=== PATIENT | female | born 1985 | race Caucasian/White ===

== ENCOUNTER → 2016-11-15 18:00 | Observation (INO) ==
[2016-11-15 16:45] LABS: Basophils % 0.4 %; Eosinophils % 0.5 %; Hematocrit 34.4 % (35.3-44.9); Hemoglobin 11.7 g/dL (11.5-15.4); Immature Granulocytes % 1.1 % (0-4); Lymphocytes # 2.5 K/mcL (0.6-4.6); Lymphocytes % 29.6 %; Mean Corpuscular Hemoglobin 32.1 pg (28.0-33.3); Mean Corpuscular Volume 94.5 fL (83.0-100.0); Mean Platelet Volume 11.1 fL (9.4-12.4); Monocytes # 0.5 K/mcL (0.0-1.3); Monocytes % 6.2 %; Neutrophils # 5.3 K/mcL (1.6-8.9); Platelet Count 213 K/mcL (140-400); Red Blood Count 3.64 M/mcL (3.82-4.97); Red Cell Distribution Width 13.4 % (11.5-14.5); Segmented Neutrophils % 62.2 %
[2016-11-15 16:51] LABS: Alanine Aminotransferase 18 Units/L (0-55); Aspartate Amino Transferase 19 Units/L (5-34); BUN/Creatinine Ratio 17 (6-26); Blood Urea Nitrogen 12 mg/dL (7-20); Lactate Dehydrogenase 210 Units/L (159-327); Uric Acid 4.9 mg/dL (2.6-6.0); eGFR For African Americans > 60 (> 60); eGFR For Non-African Americans > 60 (> 60)
--- NOTE | 2016-11-15 17:05 | OB/GYN Progress Note ---
Date of Encounter: 11/15/16 Time of Encounter: 17:03 - Assessment and Plan (1) 37 weeks gestation of Current Visit: Yes Status: Acute (2) Gestational hypertension Current Visit: Yes Status: Acute Blood pressure initially mildly elevated but has improved while in triage. Labs WNL. UPCR 0.10. Discharge home. Follow-up Monday in office for NST and BP check. Qualifiers: Trimester: third trimester Qualified Code(s): O13.3 - Gestational [ -induced] hypertension without significant proteinuria, third trimester (3) NST (non-stress test) reactive Current Visit: Yes Status: Acute Subjective - Subjective Interval history: 31 year-old presenting at 37 weeks gestation from office due to BP 150/ 100. Pt reports having some blurry vision around 0400 this am. She denies any headache, vision changes, RUQ pain, LOF, VB, or other complaints at this time. She states she took her BP at home this am when she was having sx and it was 130 's/90's. Antepartum ROS: movement normal, no loss of fluid, no vaginal bleeding, no contractions Objective - Vital Signs Vital Signs: Intake and Output 11/15/16 11/15/16 11/15/16 07:59 15:59 23:59 Other: Weight 111.9 kg Patient Weight 11/15/16 23:59 Weight 111.9 kg - Exam FHR: category 1 FHR comments: NST reactive 140 BPM Abdomen: Present: soft, gravid. Absent: tenderness Uterus: Absent: tenderness Comments: reflexes normal. - Labs Labs: Abnormal lab results RBC 3.64 M/mcL (3.82-4.97) L 11/15/16 16:25 Hct 34.4 % (35.3-44.9) L 11/15/16 16:25
[2016-11-15 17:38] LABS: Amphetamine Screen,Urine Negative ng/mL (Cutoff=1000); Barbiturate Screen,Urine Negative ng/mL (Cutoff=200); Benzodiazepines Screen,Urine Negative ng/mL (Cutoff=200); Cannabinoid Screen,Urine Negative ng/mL (Cutoff = 50); Cocaine Screen,Urine Negative ng/mL (Cutoff= 300); Creatinine,Urine 100 mg/dL; Opiate Screen,Urine Negative ng/mL (Cutoff=300); Phencyclidine Screen,Urine Negative ng/mL (Cutoff=25)
== END | disposition home or self-care (01) ==
LOC: 1NENULAB
PROVIDERS: ADMIT Obstetrics & Gynecology; ATTEND Obstetrics & Gynecology

== ENCOUNTER 2016-11-21 04:00 | Inpatient (IN) ==
[~2016-11-21 04:00] MED LIST: CeFAZolin Pre 2,000 MG/100 ML 2,000 MG/100 ML BAG IVPB ONE; Famotidine 20 MG/2 ML VIAL IVP ONE; Metoclopramide 10 MG/2 ML VIAL IVP ONE; Oxytocin 20 units/ LR 1000 mL 20 UNIT/1,000 ML BAG IVC ONE; Ringers Solution, Lactated 1,000 ML IVC ONE
--- NOTE | 2016-11-21 04:05 | OB/GYN History & Physical ---
Date of Encounter: 11/21/16 Time of Encounter: 04:03 Assessment and Plan (1) 38 weeks gestation of Current visit: Yes Status: Acute (2) Breech presentation Current visit: Yes Status: Acute Qualifiers: Fetus number: single or unspecified fetus Qualified Code(s): O32.1XX0 - Maternal care for breech presentation, not applicable or unspecified (3) Spontaneous onset of labor Current visit: Yes Status: Acute Discussed with patient. Informed consent obtained for primary for breech. Labs ordered and anesthesia notified. History of Present Illness Chief complaint: contractions HPI: Ms. Garland is a 31 year old female G1 at 38 4/7 weeks presents to labor and delivery for contractions that began at 11 pm. She has also had some vaginal spotting, but denies leaking fluid. She deneies any complications with the . Past Med Surg Social Fam HX - Past Medical History Source: patient Medical history: no medical history, other Psychiatric history: no psych history - Past Surgical History Surgical History: no surgical history - Social History Smoking Status: Never smoker Smokeless Tobacco Status: No Alcohol use: none Drug use: none - Family History Father Age: 58 Living Status: Still Living Hx Family Cardiac Disorders: No Hx Family Respiratory Disorders: No Hx Family Cancer: No Hx Family GI Disorders: No Hx Family Genitourinary Disorders: No Hx Family Endocrine Disorder: Yes (diabetic) Hx Family Musculoskeletal Disorders: No Hx Family Neuromuscular Disorders: No Hx Family Neurologic Disorders: No Hx Family HEENT Disorders: No Hx Family Autoimmune Disorders: No Hx Family Reproductive Disorders: No Hx Family Psychosocial Disorders: No Hx Family Medical Disorders: No Obstetrical History - Pregnancies : 1 Medications and Allergies Vitamins 1 tab PO DAILY 11/15/16 [History] Tums 2 tab PO PRN PRN 11/15/16 [History] 3 Allergy/AdvReac Type Severity Reaction Status Date / Time No Known Allergies Allergy Verified 11/15/16 16:45 Review of System OB All systems PM: reviewed and no additional remarkable complaints except as stated Exam - Vital Signs Vital signs: Initial Vital Signs Pulse Resp BP 76 16 142/90 11/21/16 03:36 11/21/16 03:36 11/21/16 03:36 - Constitutional Constitutional: well developed, well nourished, no acute distress, obese - HEENT HEENT: EOMI - Lungs Respiratory exam: CTAB - Cardiovascular Cardiovascular exam: RRR - Abdomen Abdomen: Present: bowel sounds normal, gravid, non tender - Cervix Dilation: 5 Results All other labs normal. US - abdomen: other (bedside performed confirming breech presentation)
[2016-11-21] MEDS ORDERED: Ringers Solution, Lactated 1,000 ML ONE ×2 (04:12→05:19)
--- NOTE | 2016-11-21 04:24 | Anesthesia Evaluation PreOp ---
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: Syncope (H/O vasovagal syncope) Other Medical History: GERD, Other (obesity BMI=45) Anesthesia History: Past Anesthesia (no prior surgery) : Yes (IUP 38+4 weeks, ) Alcohol Use: none Drug use: none Medications and Allergies Vitamins 1 tab PO DAILY 11/15/16 [History] Tums 2 tab PO PRN PRN 11/15/16 [History] 3 Allergy/AdvReac Type Severity Reaction Status Date / Time No Known Allergies Allergy Verified 11/15/16 16:45 - Meds/Allergy Pre-op Review Medications Reviewed: Yes Allergies Reviewed: Yes Beta Blockers on Current Med List: No Anesthesia Results - Labs 11/21/16 04:20 Anesthesia Exam 3 BP 146/85 Pulse 73 Resp 18 Temp 99.3 Height: 5'2''/1.57 m Weight: 246 lbs/111.674 kg NPO (# of Hours): 8 Pain Scale: 0 Pain Scale Used: Numeric (1 - 10) - HEENT Pupil (Motor): EOMI Mallampati: III Teeth: Normal Oral Opening: Greater than 3 - AUTO PARTS CLERK LOC: Oriented [employer]ERK Motor: Normal RUE, Normal LUE, Normal RLE, Normal LLE, Normal Face [employer] Sensory: Normal: RUE, RLE, LLE, Face, Deficit: LUE (left thumb numbness) - Cardiac Rhythm: Regular Murmur: None - Pulmonary Breath Sounds: bilateral Clear Respiratory Effort: Symmetrical Anesthesia Assess/Plan ASA Score: 3 Modified Harriett Scale for Level of Consciousness: Cooperative, oriented, and tranquil Anesthetic Plan: Regional Monitoring Plan: Standard Monitors Recovery Plan: PACU
[2016-11-21 04:31] LABS: Basophils % 0.3 %; Eosinophils # 0.1 K/mcL (0.0-0.6); Eosinophils % 0.7 %; Hematocrit 34.5 % (35.3-44.9); Hemoglobin 11.7 g/dL (11.5-15.4); Immature Granulocytes % 0.7 % (0-4); Lymphocytes # 2.4 K/mcL (0.6-4.6); Lymphocytes % 27.6 %; Mean Corpuscular HGB Conc 33.9 g/dL (31.6-35.5); Mean Corpuscular Hemoglobin 31.3 pg (28.0-33.3); Mean Corpuscular Volume 92.2 fL (83.0-100.0); Mean Platelet Volume 11.1 fL (9.4-12.4); Monocytes # 0.5 K/mcL (0.0-1.3); Monocytes % 5.7 %; Neutrophils # 5.6 K/mcL (1.6-8.9); Platelet Count 211 K/mcL (140-400); Red Blood Count 3.74 M/mcL (3.82-4.97); Red Cell Distribution Width 13.4 % (11.5-14.5)
[2016-11-21 04:43] LABS: Amphetamine Screen,Urine Negative ng/mL (Cutoff=1000); Barbiturate Screen,Urine Negative ng/mL (Cutoff=200); Benzodiazepines Screen,Urine Negative ng/mL (Cutoff=200); Cannabinoid Screen,Urine Negative ng/mL (Cutoff = 50); Cocaine Screen,Urine Negative ng/mL (Cutoff= 300); Opiate Screen,Urine Negative ng/mL (Cutoff=300); Phencyclidine Screen,Urine Negative ng/mL (Cutoff=25)
[2016-11-21] MEDS ORDERED: *HR* Phenylephrine 10 MG/ML VIAL ONE (04:43)
[2016-11-21] MEDS ORDERED: *HR* Oxytocin 10 UNIT/ML VIAL IM ONE (04:47)
[2016-11-21] MEDS ORDERED: *HR* Morphine Sulfate/PF 5 MG/10 ML AMPUL ONE (04:48)
[2016-11-21] MEDS ORDERED: *HR* FentaNYL (PF) 100 MCG/2 ML VIAL ONE (04:48)
[2016-11-21] MEDS ORDERED: EPHEDrine 50 MG/ML VIAL ONE (04:50)
[2016-11-21] MEDS ORDERED: Ibuprofen 400 MG TABLET PO PRN (05:36)
[2016-11-21] MEDS ORDERED: *HR* OxyCODONE/APAP 5/325 TABLET PO PRN (05:36)
[2016-11-21] MEDS ORDERED: Ondansetron 4 MG/2 ML VIAL IVP PRN ×2 (05:36→08:42)
[2016-11-21] MEDS ORDERED: Ondansetron 4 MG/2 ML VIAL IVP ONE (05:36)
[2016-11-21] MEDS ORDERED: *HR* Morphine 2 MG/ML SYRINGE IVP PRN (05:36)
--- NOTE | 2016-11-21 05:45 | Anesthesia Procedures ---
Date of Encounter: 11/21/16 Time of Encounter: 05:11 Procedures: Anesthesia - Epidural/Spinal Patient ID/Chart reviewed: Yes Patient examined: Yes OB Eval: : 1 OB Eval: Hx Para: 0 OB Eval: Contractions: Non-stressed pattern Consent Obtained: Yes Supplemental Oxygen: None/Room Air Site Prep: Aseptic Technique, Sterile prep and drape, Povidone-Iodine 1% Patient position: upright Local Anesthetic: Lidocaine 1% Amount of Local Anesthetic used: 3 Interspace Used: L3-L4 Loss of Resistance (MARVIN): No Blood: No CSF: Yes Paresthesia: Yes Spinal Needle Gauge: 22 (bupivicaine 0.75% 1.6ml fentanyl 12 mcg morphine 0.3mg)
--- NOTE | 2016-11-21 06:09 | OB/GYN Procedure Note ---
Section - Date of procedure: 11/21/16 Preop diagnosis: breech Post-op diagnosis: same Procedure: section, primary low transverse Surgeon: Julita Long Estimated blood loss (cc): 350 Anesthesiologist: Goldy Merchant Stock Buyer: Becki Merchant Anesthesia Type: Spinal section complications: none Disposition: L&D Recovery Room Specimens: Placenta - (s) A Delivery Date: 11/21/16 Infant Delivery Time: 05:27 Presentation: jules breech Route of delivery: breech extraction Gender: Male Viability: Viable Pounds: 7 Ounces: 13 Gram Weight: 3.545 kg at 1 minute: 8 at 5 minutes: 9 Shoulder Dystocia: not encountered Specimens collected: cord blood Placenta: complete extraction Cord: 3 umbilical vessels - Narrative Narrative: Patient was taken to the operative suite and placed under spinal anesthetic. She was then prepped and draped in normal sterile fashion in the dorsal supine position. Timeout was then performed. Antibiotics were given at room time. SCDs are on and active. Pfannenstiel skin incision is then made and carried through to underlying layer of fascia with the Bovie. The fascia was then incised in the midline and incision extended laterally with the Sparks scissors. The fascia was tented up and dissected off the rectus muscles sharply. The rectus muscles were in the midline and the peritoneum was tented up and entered sharply with the Metzenbaum scissors. The peritoneal incision was then extended bluntly. The bladder blade was then inserted and the vesicouterine peritoneum was entered sharply. Bladder flap was created digitally. A low transverse uterine incision was then made. The infant breech was brought to the incision and the infant was delivered using fundal pressure. There was no nuchal cord. Cord was clamped and cut. was handed to waiting nursery staff. Placenta delivered complete and intact with a three-vessel cord. The uterus was cleared of all clots and debris using moist laparotomy sponge. The uterine incision was then closed using 0 Vicryl in a running locked fashion. A second layer of the same suture was used to obtain excellent hemostasis. The abdomen was then cleared of all clots and debris using copious irrigation. A piece of Interceed was placed over the uterine incision and the anterior uterine serosa. The fascial incision was then closed using 0 Vicryl in a running fashion. The skin was closed using 4-0 Vicryl in a subcuticular fashion. Steri-Strips and sterile dressing are then placed. Mother and taken to recovery in stable condition.
--- NOTE | 2016-11-21 08:10 | Anesthesia Evaluation Post Op ---
Date of Encounter: 11/21/16 Time of Encounter: 08:08 - Vital Signs Vital Signs: Vital Signs/O2 Sat, Most Current Pulse Resp BP 76 16 142/90 11/21/16 03:36 11/21/16 03:36 11/21/16 03:36 - Lungs Lungs: Clear Ascult./Percussion - Airway Airway: Non-obstructed - Cardiovascular Regular Rate - Mental Status Mental Status: Alert & Oriented, Answers Appropriately - Pain Pain Scale: 3 - Nausea Vomiting Nausea Vomiting: Not Present - Hydration Hydration: NPO - Discharge PostOp Status: Transfer Patient to floor (minimal pain, VSS, no anesthetic complications)
[2016-11-21] MEDS ORDERED: Acetaminophen 325 MG TABLET PO PRN (08:42)
[2016-11-21] MEDS ORDERED: Simethicone 80 MG TAB.CHEW PO PRN (08:42)
[2016-11-21] MEDS ORDERED: Oxytocin 20 units/ LR 1000 mL 20 UNIT/1,000 ML BAG IVC SCH (08:42)
[2016-11-21] MEDS ORDERED: Metoclopramide 10 MG/2 ML VIAL IVP PRN (08:42)
[2016-11-21] MEDS ORDERED: Sennosides 8.6 MG TABLET PO PRN (08:42)
[2016-11-21] MEDS: Ibuprofen 600 MG TABLET PO PRN ×2 (09:17→22:08)
[2016-11-21] MEDS: *HR* OxyCODONE/APAP 5/325 TABLET PO PRN (18:01)
[2016-11-22] MEDS: Ibuprofen 600 MG TABLET PO PRN ×3 (04:09→20:23)
[2016-11-22] MEDS: *HR* OxyCODONE/APAP 5/325 TABLET PO PRN ×3 (06:34→22:05)
[2016-11-22] MEDS: Prenatal Vit/FA 1 EACH TABLET PO SCH (07:58)
--- NOTE | 2016-11-22 08:56 | OB/GYN Progress Note ---
Date of Encounter: 11/22/16 Time of Encounter: 08:54 - Assessment and Plan (1) S/P section Current Visit: Yes Status: Acute Pt meeting all post-op day 1 milestones. Anticipate discharge home PPD#2. (2) Mother currently breast-feeding Current Visit: Yes Status: Acute Pt to see today. Subjective - Subjective Patient reports: appetite normal, voiding normally, pain well controlled, ambulating normally Graham: doing well Objective - Vital Signs Latest vital signs: Vital Signs Temp Pulse Resp BP Pulse Ox 11/22/16 07:55 98.4 F 78 16 121/75 98 11/22/16 03:35 98.1 F 74 16 121/75 98 11/22/16 00:16 97.9 F 70 18 121/74 98 11/21/16 19:30 98.6 F 88 16 133/88 97 11/21/16 15:49 18 11/21/16 15:35 98.6 F 72 18 121/75 11/21/16 11:46 18 11/21/16 11:30 97.9 F 62 18 121/71 11/21/16 10:30 98.4 F 78 18 126/77 11/21/16 09:30 97.7 F 71 18 124/75 11/21/16 09:00 97.8 F 72 16 128/79 Intake and Output 11/21/16 11/22/16 11/22/16 23:59 07:59 15:59 Intake Total 870 / 870 400 / 400 Output Total 1020 / 1020 1700 / 1700 Balance -150 / -150 -1300 / -1300 Intake: IV Fluids 750 / 750 Pitocin 20 unit In 1,000 ml @ 750 / 750 125 mls/hr IVC .Q8H [facility] Rx#: [id number] Oral 120 / 120 400 / 400 Output: Urine 200 / 200 1700 / 1700 Catheter 820 / 820 Other: Stool Characteristics Normal for Patient Weight 107.3 kg Patient Weight 11/22/16 23:59 Weight 107.3 kg - Exam Lungs: bilateral: normal Chest: Normal S1, Normal S2 Extremities: Present: edema (2+ bilat) Abdomen: Present: soft Incision: Present: dressed (dressing dry and intact) Uterus: Present: firm
[2016-11-23] MEDS: Ibuprofen 600 MG TABLET PO PRN (03:22)
[2016-11-23 07:51] VITALS: BP 119/78
--- NOTE | 2016-11-23 08:33 | Discharge Summary ---
Date of Encounter: 11/23/16 Time of Encounter: 08:20 - Discharge Diagnosis (1) S/P section Priority: Primary Status: Acute Comments: Pt states pain well managed, , desires discharge (2) Mother currently breast-feeding Priority: Secondary Status: Acute - Discharge Medications Prescriptions: Ibuprofen [Motrin] 600 mg PO Q6HR PRN #60 tablet PRN Reason: Cramping OxyCODONE/APAP 5/325 [Percocet 5/325 MG] 1 each PO Q6HR PRN #28 tablet PRN Reason: Moderate pain 4-6 Docusate [Colace] 100 mg PO BID #30 capsule Home Medications: Tums 2 tab PO PRN PRN 11/15/16 [History] Docusate [Colace] 100 mg PO BID #30 capsule 11/23/16 [Rx] Ferrous Sulfate 325 mg PO DAILY tablet 11/23/16 [Rx] Ibuprofen [Motrin] 600 mg PO Q6HR PRN #60 tablet 11/23/16 [Rx] OxyCODONE/APAP 5/325 [Percocet 5/325 MG] 1 each PO Q6HR PRN #28 tablet 11/23/16 [Rx] Vit/FA 1 each PO DAILY tablet 11/23/16 [Rx] Allergies/Adverse Reactions: 3 Allergy/AdvReac Type Severity Reaction Status Date / Time No Known Allergies Allergy Verified 11/15/16 16:45 Data Procedures and tests throughout hospitalization: Laboratory Tests 11/21/16 11/21/16 04:20 04:20 WBC 8.7 RBC 3.74 L Hgb 11.7 Hct 34.5 L MCV 92.2 MCH 31.3 MCHC 33.9 RDW 13.4 Plt Count 211 MPV 11.1 Immature Gran % 0.7 Seg Neutrophils % 65.0 Lymphocytes % 27.6 Monocytes % 5.7 Eosinophils % 0.7 Basophils % 0.3 Neutrophils # 5.6 Lymphocytes # 2.4 Monocytes # 0.5 Eosinophils # 0.1 Basophils # 0.0 Urine Opiates Screen Negative Ur Barbiturates Screen Negative Ur Phencyclidine Scrn Negative Ur Amphetamines Screen Negative U Benzodiazepines Scrn Negative Urine Cocaine Screen Negative U Marijuana (THC) Screen Negative Date of admission: 11/21/16 04:00 Primary care physician: PCP NONE Discharging clinician: Raffy Gutierrez Anticipated date of discharge: 11/23/16 - Patient Status Disposition: Home, Self-Care Condition: Good Functional capacity at discharge: independent ambulation Overall status at discharge: patient is progressing back to baseline - Discharge Instructions Follow Up With: NONE,PCP [Primary Care Provider] - Julita Long DO [Partnered Physician] - - Diet and Activity Activity: resume usual activities as tolerated Diet: advance to your usual diet, regular diet Hospital Course Reason for admission: IUP at term Delivery: breech extraction, section complications: none Discharge diagnosis: IUP at term delivered baby: male Hospital course: Ms. Garland is a 31 yo female that presented to the clinic as 38 4/7 wks for labor and delivery due to contractions. She admitted to some vaginal spotting, but denied any leakage of fluid. Patient had a procedure performed due to jules breech presentation. A male infant was successfully delivered at 7 pounds 13 ounces with scores of 8 and 9 at 1 and 5 minutes. Placenta was successfully extracted and the umbilical cord had 3 vessels. When seen today, patient says that she been breast-feeding the baby. She admits to some minor abdominal discomfort at her incision site, rating it a 4/10 in pain scale and exacerbated with movement. She still has some minor vaginal bleeding, but states that it has improved since the surgery. She denies any fever, chills, chest pain, shortness of breath, headaches, nausea, or vomiting. Time Attestation: Total time spent providing and/or coordinating discharge services: Time Spent: Less than 30 minutes - VTE Documentation of Mechanical Device: Intermittent pneumatic compression device Exam - Constitutional Vitals: Temp Pulse Resp BP Pulse Ox 98.2 F 70 16 119/78 98 11/23/16 07:35 11/23/16 07:35 11/23/16 07:35 11/23/16 07:35 11/23/16 07:35 General appearance IM: A&O X 3, pleasant, no acute distress - Respiratory Respiratory exam: Present: CTAB. Absent: respiratory distress, rhonchi, wheezes - Cardiovascular Cardiovascular exam IM: Present: RRR, +S1, +S2 - GI/Abdominal GI/Abdominal exam IM: normal bowel sounds, soft Incision: normal, dry, intact - Uterine Tone: Firm Uterus Position: At Umbilicus - Extremities Exam Extremities exam IM: Present: pedal edema, radial pulses palpable and symmetrical Additional comments: Pedal pulses intact bilaterally. - Neurological Exam Neurological exam: normal gait, oriented X3 - Psychiatric Additional comments: Reports good mood.
[2016-11-23] MEDS: *HR* OxyCODONE/APAP 5/325 TABLET PO PRN (08:35)
[2016-11-23] MEDS: Prenatal Vit/FA 1 EACH TABLET PO SCH (08:35)
== END 2016-11-23 13:07 | disposition home or self-care (01) | DRG 765 ==
LOC: 1NENULAB → 1NENUOBS 08:36
PROVIDERS: ADMIT Registered Nurse; ATTEND Registered Nurse